=== PATIENT | female | born 1965 | race Caucasian/White ===

== ENCOUNTER 2025-01-08 06:34 | Day surgery (SDC) | payer OTHER, SELFPAY ==
[2025-01-08] VITALS (27 sets, daily range): BP systolic 75–176; BP diastolic 44–97; BMI 33.5
[2025-01-08 07:02] LABS: Hematocrit 31.0 % (37.0-47.0); Hemoglobin 10.5 g/dL (12.0-16.0); Mean Corp Hgb Conc. 33.9 g/dL (33.0-37.0); Mean Corpuscular Volume 82.7 fL (81.0-99.0); Platelet Count 327 10^3/uL (130-400); Red Cell Dist. Width 15.6 % (11.5-14.5)
[2025-01-08 07:22] LABS: ALT (SGPT) 23 U/L (0-35); AST (SGOT) 19 U/L (14-36); Albumin 4.7 g/dl (3.5-5.0); Alkaline Phosphatase 104 U/L (38-126); Blood Urea Nitrogen 25 mg/dl (7-17); Calcium 10.6 mg/dl (8.4-10.2); Carbon Dioxide 27 mmol/L (22-30); Chloride 103 mmol/L (98-107); Glucose 161 mg/dl (70-99); Potassium 4.7 mmol/L (3.5-5.1); Sodium 139 mmol/L (135-145); Total Protein 7.1 g/dl (6.3-8.2); eGFR > 60.00
[2025-01-08 09:01] LABS: ACT-LR - POC 287 Seconds (116-155)
[2025-01-08 09:11] LABS: ACT-LR - POC 256 Seconds (116-155)
[2025-01-08] MEDS: NITROGLYCERIN PREMIX 250 IV (09:40)
[2025-01-08] MEDS: NSS 500 VEN SHEATH (09:40)
--- NOTE | 2025-01-08 10:00 | ITS.CL.CATH ---
Scrip Clerk - Catheterization
Cardiac Catheterization
Procedure Report:
LEFT AND RIGHT HEART CATHETERIZATION
Date of Procedure: January 08, 2025
Referring: Dr. Anne Marie Carrasco; Nga Zarate PA-C
PROCEDURES:
1. Left heart catheterization, coronary angiogram.
2. Moderate sedation.
3. Right heart catheterization
4. Functional physiologic testing of left main into LAD.
5. Functional physiologic testing of left main into left circumflex artery.
6. Femoral angiography
INDICATION: Abnormal Stress Test.
ACCESS: 1. Right common femoral artery, 5 [place] sheath, under ultrasound guidance using a micropuncture kit.
2. Right common femoral vein, 6 [place] sheath, under ultrasound guidance using a micropuncture kit.
3. Right radial artery was obtained using a 5 [place] sheath however we could not advance any 5 [place] catheters through this and therefore this access was aborted in favor of right common femoral arterial access.
HEMODYNAMICS : (mmHg)
RA (m): 21
RV (s/d,m) : 56/19, 24
PA (s/d, m) : 56/29, 43
PCWP (m) : 28
PA saturation: 60.9% on room air
AO saturation: 95.3% on room air
RA saturation: 65.0% on room air
Cardiac Output : 5.5 L/min
Cardiac Index : 2.75 L/min/m-2
Systemic vascular resistance: 1595 dsc^(-5)
Pulmonary vascular resistance: 2.72 gomes unit
AO (s/d) : 183/89
LVEDP : 29
No significant gradient across the aortic valve to suggest aortic stenosis.
CORONARY FINDINGS
Dominance: Right
Left Main Trunk (LMT): Large caliber vessel that gives rise to the LAD and LCx branches. Ostial Left main has eccentric 20-30% stenosis. iFR negative at 0.98.
Left Anterior Descending Artery (LAD): Large caliber vessel that gives off 2 major diagonal branches as it courses along the anterior inter-ventricular groove before wrapping around the cardiac apex. Proximal and mid LAD have serial smooth tubular
40% stenoses.
Left Circumflex Artery (LCx): Large caliber vessel that gives off 1 major obtuse marginal (OM) branch as it courses along the atrio-ventricular (AV) groove. The LCx and its branches are free of angiographic disease.
Right Coronary Artery (RCA): Large caliber dominant vessel that gives rise to the posterior descending artery (RPDA) and postero-lateral ventricular (RPLV) branches distally. Ostial to proximal RPDA and RPLB have 40-50% stenosis.
HEMODYNAMIC ASSESSMENT OF THE ostial left main WITH A [place] OMNI WIRE: The origin of the LCA was cannulated with a 5 Fr JL 3.5 guide catheter. Intravenous heparin was administered and the ACT was followed during the procedure. Two hundred
micrograms of intracoronary nitroglycerin was given through the guide catheter. A [place] Omni wire was advanced to the guide catheter tip and normalized just outside the guide catheter in the aorta with guide disengaged. The Omni wire was then
carefully manipulated across the stenosis in the ostial left main into LAD with the iFR measuring 0.90.
Minimal residual contribution from left main which was confirmed by performing iFR of left main into LCX which was 0.98, 0.99 The Omni wire was then pulled back to the guide catheter with it disengaged in the aorta where the Pd/Pa measured 1.0
confirming no baseline drift in pressure readings.
SEDATION: 47 minutes of procedural sedation was utilized. IV Midazolam and IV Fentanyl were administered. An independent veterinary medical officer was present to assist with and help manage the patient's level of consciousness and physiologic status.
RADIATION SUMMARY: Fluoro Time (min): 8.8, Dose (mGy): 324.8 DAP (Gy.cm2) : 22
Femoral angiography: Femoral arteriotomy is noted to be above the bifurcation and below the inferior epigastric artery. There is minimal luminal irregularities in the visualized external iliac and femoral vessels.
Closure Device: There were no immediate intra-procedural complications. The sheath was pulled in the [employer] and a vascular-band applied to the right wrist for radial artery hemostasis using the patent hemostasis technique. 6Fr angioseal was
placed over RCFA access with successful hemostasis.
CONCLUSIONS
1. Ostial Left main has eccentric 20-30% stenosis. iFR negative at 0.98.
2. Moderate proximal and mid LAD stenoses. Proximal and mid LAD have serial smooth tubular 40% stenoses.
3. Ostial to proximal RPDA and RPLB have 40-50% stenosis.
RECOMMENDATIONS
1. Wean radial band per protocol. Monitor right hand perfusion and for bleeding from the radial site following removal of the vascular-band following trans-radial access.
2. Continue aggressive medical therapy and risk factor modification for secondary CAD prevention.
3. Hydrate with normal saline to mitigate the risk of contrast-induced acute kidney injury.
4. Follow-up with Dr. Anne Marie Carrasco
Angelica Pang MD, [facility], [facility]
Copy to: Dr. Anne Marie Carrasco; Nga Zarate PA-C
[2025-01-08] MEDS: LASIX 40 MG IV (10:09)
[2025-01-08] MEDS: TRANDATE 200 MG PO (10:26)
[2025-01-08] MEDS: COZAAR 50 MG PO (10:27)
[2025-01-08] MEDS: IMDUR (EXTENDED RELEASE) 30 MG PO (10:28)
[2025-01-08 10:39] LABS: ACT-LR - POC 182 Seconds (116-155)
--- NOTE | 2025-01-08 13:07 | PTCARENOTE ---
0940: Rec'd pt in bay 15. Placed on all appropriate monitoring equipment. VS as noted on 60mcg/min nitro drip. All sited checked and are WNL. R femoral vein sheath intact w NSS at KVO. Pt tolerating all well and is w/o c/o.
1020: 40mg IV lasix as ordered. Purewick placed. Pt chelsea all well.
1030: PO meds as ordered. Pt che[place] po fluids and is w/o c/o.
1037: ACT is 182. OK to pull R Fem sheath per IGNACIO Maya.
1055: Titrate Nitro to 50mcg/min.
1105: Pt c/o feeling warm/dizzy. BPs 70's / 40's. Nitro OFF. NSS placed w/o. Pt placed flat. IGNACIO Maya notified.
--- NOTE | 2025-01-08 16:18 | PTCARENOTE ---
1115: Pt advises feeling 'better', remains pain free. VS improving. Cont to monitor.
1125: IVF to 100ml/hr. Pt advises unable to void via purewick and bladder with full feeling. Bladder scan shows 600ml. Per IGNACIO Maya, straight cath pt. Pt straight cathed for 875ml clear yellow urine. Tolerating all well.
1200: R femoral vein sheath d/c'd. manual pressure held. Hemostasis at 1210. Dressing placed. Pt remains w/o c/o.
1325: Pt unable to use purewick. Bladder scan shows 776mls. IGNACIO Maya advised/assisted to place Bedpan, sit pt in high fowlers, with pt holding groin site. Pt voided LARGE amount clear yellow urine.
1410: Pt OOB with assist and ambulating well. No incident or change.
== END 2025-01-08 15:00 | disposition home or self-care (01) ==
LOC: CATH 06:34
PROVIDERS: ATTENDING PHYSICIAN Internal Medicine Interventional Cardiology; FAMILY PHYSICIAN Family Medicine; OTHER PHYSICIAN Internal Medicine Cardiovascular Disease
DX: I25.10 Atherosclerotic heart disease of native coronary artery without angina pectoris (principal); R94.39 Abnormal result of other cardiovascular function study
CPT/HCPCS: 93799; 80053; 85027; 85347; 93460; 99152; 99153; C1760; C1769; C1894; Q9967

== ENCOUNTER → 2025-04-08 08:30 | Outpatient (REF) | payer OTHER, SELFPAY | LOC: WDC 08:30 | PROVIDERS: ATTENDING PHYSICIAN Family Medicine | DX: Z12.31 Encounter for screening mammogram for malignant neoplasm of breast (principal) | CPT/HCPCS: 77063; 77067 ==